=== PATIENT | male | born 1960 | race Hispanic/Latino ===

== ENCOUNTER 2016-09-02 20:50 | Observation (INO) | payer BC, OTHER ==
--- NOTE | 2016-09-02 21:20 | ED PDOC ---
Arrival/HPI - General Chief Complaint: Fever Time Seen by Provider: 09/02/16 21:08 Historian: Patient - History of Present Illness Narrative History of Present Illness (Text): 09/02/16 21:20 Ghulam Good is a 56 year old male, whose past medical history includes hypertension and enlarged prostate, who presents to the Emergency department complaining of fever since this morning. Patient reports associated chills, generalized malaise, and body aches since yesterday. Patient notes he recently underwent a prostate biopsy 1 week ago. Patient states he took 2 Aspirin at home. Patient also complaining of some occasional dysuria and abdominal discomfort. Patient denies any chest pain, shortness of breath, nausea, vomiting , diarrhea, back pain, neck pain, headache, dizziness, or any other complaints. Time/Duration: Other (yesterday) Symptom Onset: Gradual Symptom Course: Unchanged Activities at Onset: Rest, Light Context: Home Past Medical History - Provider Review Nursing Documentation Reviewed: Yes - Infectious Disease Hx of Infectious Diseases: None - Cardiac Hx Cardiac Disorders: Yes Hx Hypertension: Yes - Pulmonary Hx Respiratory Disorders: Yes Hx Bronchitis: Yes - Neurological Hx Neurological Disorder: No - HEENT Hx HEENT Disorder: Yes (WEARS RX GLASSES,TINNITUS) - Renal Hx Renal Disorder: No - Endocrine/Metabolic Hx Endocrine Disorders: Yes Other/Comment: prediabetic - Hematological/Oncological Hx Blood Disorders: No - Integumentary Hx Dermatological Disorder: No - Musculoskeletal/Rheumatological Hx Musculoskeletal Disorders: Yes (RIGHT HIATAL HERNIA SURGERY) Hx Falls: No - Gastrointestinal Hx Gastroesophageal Reflux: Yes - Genitourinary/Gynecological Hx Genitourinary Disorders: No - Psychiatric Hx Depression: No Hx Emotional Abuse: No Hx Physical Abuse: No Hx Substance Use: No - Surgical History Hx Hysterectomy: Yes Other/Comment: colonoscopy. Prostate biopsy - Anesthesia Hx Anesthesia: Yes Hx Anesthesia Reactions: No - Suicidal Assessment Feels Threatened In Home Enviroment: No Family/Social History - Physician Review Nursing Documentation Reviewed: Yes Family/Social History: Unknown Family HX Smoking Status: Never Smoked Hx Alcohol Use: No Hx Substance Use: No Allergies/Home Meds Allergies/Adverse Reactions: Allergies No Known Allergies Allergy (Verified 09/02/16 21:00) Home Medications: Home Meds Medication Instructions Recorded Confirmed Lisinopril [Lisinopril] 10 mg PO DAILY 06/09/13 09/02/16 Alprazolam [Xanax] 0.5 mg PO BID 09/02/16 09/02/16 clonazePAM [Klonopin] 0.5 mg PO BID 09/02/16 09/02/16 Review of Systems - Physician Review All systems were reviewed & negative as marked: Yes - Review of Systems Constitutional: Fevers, Other (+generalized malaise) Eyes: Normal ENT: Normal Respiratory: Normal. absent: SOB, Cough Cardiovascular: Normal. absent: Chest Pain Gastrointestinal: Abdominal Pain. absent: Diarrhea, Nausea, Vomiting Genitourinary Male: Dysuria Musculoskeletal: Myalgias (+body aches) Skin: Normal Neurological: Normal. absent: Headache, Dizziness Endocrine: Normal Hemo/Lymphatic: Normal Psychiatric: Normal Physical Exam Vital Signs Reviewed: Yes Vital Signs Temp Pulse Resp BP Pulse Ox 09/03/16 00:09 99.9 F H 100 H 18 121/73 95 09/02/16 22:49 99.9 F H 09/02/16 21:03 102.4 F H 120 H 19 135/79 96 Temperature: Febrile Blood Pressure: Normal Pulse: Regular Respiratory Rate: Normal Appearance: Positive for: Well-Appearing, Non-Toxic, Comfortable Pain Distress: None Mental Status: Positive for: Alert and Oriented X 3 - Systems Exam Head: Present: Atraumatic, Normocephalic Pupils: Present: PERRL Extroacular Muscles: Present: EOMI Conjunctiva: Present: Normal Mouth: Present: Moist Mucous Membranes Neck: Present: Normal Range of Motion Respiratory/Chest: Present: Clear to Auscultation, Good Air Exchange. No: Respiratory Distress, Accessory Muscle Use Cardiovascular: Present: Regular Rate and Rhythm, Normal S1, S2. No: Murmurs Abdomen: Present: Normal Bowel Sounds. No: Tenderness, Distention, Peritoneal Signs Back: Present: Normal Inspection Upper Extremity: Present: Normal Inspection. No: Cyanosis, Edema Lower Extremity: Present: Normal Inspection. No: Edema Neurological: Present: GCS=15, CN II-XII Intact, Speech Normal Skin: Present: Warm, Dry, Normal Color. No: Rashes Psychiatric: Present: Alert, Oriented x 3, Normal Insight, Normal Concentration Medical Decision Making ED Course and Treatment: 09/02/16 21:20 Impression: 56 year old male complaining of fever, chills, generalized malaise, and body aches. Differential Diagnosis include but are not limited to: SIRS vs. sepsis Plan: -- EKG -- CXR -- Labs, VBG, blood cultures -- Urinalysis, urine cultures -- Tylenol -- Reassess and disposition Progress Notes: 09/02/16 21:58 Reviewed radiology, Chest X-ray shows no active disease. 09/02/16 22:35 Reviewed EKG, sinus tachycardia at 103 bpm[address] Non-specific ST/T wave changes. 09/03/16 01:[address] Gurvinder Pepe, who is aware and agrees with plan. Accepts pt in to his service. Pt will go to [facility] observation for SIRS r/o sepsis. Requests Dr. Guevara on consult. Pt is no acute distress. Discussed results and plan with pt, who is aware and verbalizes understanding. - Lab Interpretations Lab Results: 09/02/16 21:20 09/02/16 21:20 Lab Results 09/03/16 01:02: pO2 155 H, VBG pH 7.40, VBG pCO2 38.0 L, VBG HCO3 23.5, VBG Total CO2 24.7, VBG O2 Sat (Calc) 99.3 H, VBG Base Excess -1.0 L, VBG Potassium 3.5 L, Sodium 135.0, Chloride 107.0, Glucose 111 H, Lactate 0.7, FiO2 21.0, Venous Blood Potassium 3.5 L 09/02/16 23:05: Urine Color Yellow, Urine Appearance Clear, Urine pH 6.0, Ur Specific [place] <= 1.005, Urine Protein Negative, Urine Glucose (UA) Negative, Urine Ketones Negative, Urine Blood Large H, Urine Nitrate Negative, Urine Bilirubin Negative, Urine Urobilinogen 0.2, Ur Leukocyte Esterase Negative, Urine RBC 15 - 20, Urine WBC 0 - 2, Ur Epithelial Cells 0 - 2 09/02/16 21:20: Sodium 137, Chloride 102, Potassium 4.0, Carbon Dioxide 25, Anion Gap 14, BUN 13, Creatinine 0.9, Est GFR ( Amer) > 60, Est GFR (Non- Af Amer) > 60, Random Glucose 138 H, Calcium 8.8, Phosphorus 2.2 L, Magnesium 1.6 L, Total Bilirubin 0.6, AST 32, ALT 44, Alkaline Phosphatase 61, Total Protein 7.5, Albumin 4.1, Globulin 3.4, Albumin/Globulin Ratio 1.2 09/02/16 21:20: pO2 40, VBG pH 7.37, VBG pCO2 47.0, VBG HCO3 27.2, VBG Total CO2 28.6 H, VBG O2 Sat (Calc) 77.8 H, VBG Base Excess 1.3, VBG Potassium 4.0, Sodium 137.0, Chloride 103.0, Glucose 145 H, Lactate 2.0, FiO2 21.0, Venous Blood Potassium 4.0 09/02/16 21:20: PT 11.3, INR 1.05, APTT 28.8 09/02/16 21:20: WBC 8.2, RBC 5.07, Hgb 16.6, Hct 46.1, MCV 90.9, MCH 32.7, MCHC 36.0, RDW 12.4, Plt Count 168, MPV 9.9, Gran % 82.5 H, Lymph % (Auto) 7.0 L, [place] % (Auto) 8.1 H, Eos % (Auto) 2.0, Baso % (Auto) 0.4, Gran # 6.73 H, Lymph # 0.6 L, [place] # 0.7 H, Eos # 0.2, Baso # 0.03 I have reviewed the lab results: Yes - RAD Interpretation Radiology Orders: 09/02/16 21:09 CHEST PORTABLE [RAD] Stat - EKG Interpretation Interpreted by ED Physician: Yes Type: 12 lead EKG - Medication Orders Current Medication Orders: Acetaminophen (Tylenol 325mg Tab) 650 mg PO Q4H PRN PRN Reason: Fever >100.5 F Stop: 09/03/16 12:00 Sodium Chloride (Sodium Chloride 0.9%) 1,000 mls @ 100 mls/hr IV .Q10H STA Stop: 09/03/16 11:36 Discontinued Medications Acetaminophen (Tylenol 325mg Tab) 975 mg PO ONCE PRN PRN Reason: Fever >100.4 F Last Admin: 09/02/16 21:49 Dose: 975 mg Re-Assess: NOE Pain/Vitals Document 09/02/16 22:49 GMD (Rec: 09/03/16 00:53 GMD [id number]) Vitals Temperature (97.6 F-99.6 F) 99.9 F Temperature Source Oral Acetaminophen (Tylenol 325mg Tab) Confirm Administered Dose 975 mg .ROUTE .STK- MED ONE Stop: 09/02/16 21:22 Last Admin: 09/02/16 21:50 Dose: Sodium Chloride (Sodium Chloride 0.9%) 1,000 mls @ 999 mls/hr IV .Q1H1M STA Stop: 09/02/16 22:57 Last Admin: 09/02/16 22:09 Dose: 999 mls/hr Ceftriaxone Sodium (Rocephin 1 Gram Ivpb) 1 gm in 100 mls @ 200 mls/hr IV ONCE STA PRN Reason: Protocol Stop: 09/03/16 01:18 Last Admin: 09/03/16 00:58 Dose: 200 mls/hr - Scribe Statement The provider has reviewed the documentation as recorded by the Leandroibcordell Ernst Provider Attestation: All medical record entries made by the Scribe were at my direction and personally dictated by me. I have reviewed the chart and agree that the record accurately reflects my personal performance of the history, physical exam, medical decision making, and the department course for this patient. I have also personally directed, reviewed, and agree with the discharge instructions and disposition. Disposition/Present on Arrival - Present on Arrival Any Indicators Present on Arrival: No History of DVT/PE: No History of Uncontrolled Diabetes: No Urinary Catheter: No History of Decub. Ulcer: No History Surgical Site Infection Following: None - Disposition Have Diagnosis and Disposition been Completed?: Yes Diagnosis: SIRS (systemic inflammatory response syndrome), Fever Disposition: HOSPITALIZED Disposition Time: 01:44 Patient Plan: Observation Condition: STABLE Referrals: Jerome Pepe MD [Primary Care Provider] - Follow up with primary
[2016-09-02 21:33] LABS: ADD MANUAL DIFF? NO
[2016-09-02 21:40] LABS: BASO # 0.03 K/mm3 (0.0-2.0); BASO % 0.4 % (0.0-3.0); EOS # 0.2 (0.0-0.7); GRAN # 6.73 (1.4-6.5); GRAN % 82.5 % (50.0-68.0); HEMATOCRIT 46.1 % (42.0-52.0); LYMPH # 0.6 (1.2-3.4); MEAN CELL VOLUME 90.9 fL (80.0-105.0); MEAN CORPUSCULAR HEMOGLOBIN 32.7 pg (25.0-35.0); MEAN PLATELET VOLUME 9.9 fl (7.0-11.0); MONO # 0.7 (0.1-0.6); MONO % 8.1 % (1.0-6.0); PLATELET COUNT 168 10^3/uL (120.0-450.0); RED CELL DISTRIBUTION WIDTH 12.4 % (11.5-14.5); WHITE BLOOD COUNT 8.2 10^3/ul (4.5-11.0)
[2016-09-02 21:47] LABS: VENOUS BLOOD GAS BASE EXCESS 1.3 mmol/L (0.0-2.0); VENOUS BLOOD PH 7.37 (7.32-7.43)
[2016-09-02 21:49] LABS: ALB/GLOB RATIO 1.2 (1.1-1.8); ALKALINE PHOSPHATASE 61 U/L (38-133); ALT/SGPT 44 U/L (7-56); AST/SGOT 32 U/L (15-59); BILIRUBIN,TOTAL 0.6 mg/dL (0.2-1.3); BLOOD UREA NITROGEN 13 mg/dL (7-21); CALCIUM 8.8 mg/dL (8.4-10.5); CARBON DIOXIDE 25 mmol/L (21-33); CHLORIDE 102 mmol/L (98-107); GFR AFRICAN-AMERICAN > 60; GLUCOSE,RANDOM 138 mg/dL (70-110); MAGNESIUM 1.6 mg/dL (1.7-2.2); PHOSPHOROUS 2.2 mg/dL (2.5-4.5); SODIUM 137 mmol/L (132-148); TOTAL PROTEIN 7.5 g/dL (5.8-8.3)
[2016-09-02] MEDS ORDERED: Sodium Chloride 0.9% 1,000 ML IV STA (21:57)
[2016-09-02 22:20] LABS: INR 1.05 (0.93-1.08); PARTIAL THROMBOPLASTIN TIME 28.8 Seconds (23.7-30.8)
[2016-09-02 23:38] LABS: URINE BILIRUBIN NEGATIVE (NEGATIVE); URINE BLOOD LARGE (NEGATIVE); URINE GLUCOSE (UA) NEGATIVE (NEGATIVE); URINE KETONE NEGATIVE (NEGATIVE); URINE LEUKOCYTE ESTERASE NEGATIVE Leu/uL (NEGATIVE); URINE PROTEIN NEGATIVE mg/dL (<30 mg/dL); URINE UROBILINOGEN 0.2 E.U./dL (<1 E.U./dL)
[2016-09-02 23:40] LABS: URINE APPEARANCE CLEAR (CLEAR); URINE COLOR YELLOW (YELLOW)
[2016-09-02 23:48] LABS: URINE EPITHELIAL CELLS 0 - 2 /hpf (0-5); URINE RBC 15 - 20 /hpf (0-2); URINE WBC 0 - 2 /hpf (0-6)
[2016-09-03] MEDS ORDERED: cefTRIAXone 1 gm 1 GM/100 ML BAG IV STA (00:49)
[2016-09-03] MEDS ORDERED: Sodium Chloride 0.9% 1,000 ML IV STA (01:37)
[2016-09-03 04:10] VITALS: BMI 32.3
[2016-09-03] MEDS ORDERED: Vancomycin 1gm in NS 250ml 1 GM/250 ML BAG IVPB STA (07:29)
--- NOTE | 2016-09-03 09:33 | RAD ---
HISTORY: Sepsis Patient COMPARISON: Chest x-ray performed 06/09/13 TECHNIQUE: Chest, one view. FINDINGS: LUNGS: No focal consolidation. Please note that chest x-ray has limited sensitivity for the detection of pulmonary masses. PLEURA: No significant pleural effusion identified. No definite pneumothorax . CARDIOVASCULAR: Heart size appears within normal limits. OSSEOUS STRUCTURES: Degenerative changes of the spine. VISUALIZED UPPER ABDOMEN: Unremarkable. OTHER FINDINGS: None. IMPRESSION: No focal consolidation, significant pleural effusion, or definite pneumothorax identified.
[2016-09-03] MEDS ORDERED: cefTRIAXone 1 gm 1 GM/100 ML BAG IVPB SCH (10:00)
[2016-09-03] MEDS: Meropenem 1g/NS 100mL IVPB 1 GM/100 ML PIGGYBACK IVPB SCH ×2 (11:29→21:43)
--- NOTE | 2016-09-03 13:45 | CP.PCM.CON ---
History of Present Illness - History of Present Illness History of Present Illness: 56 year old mael with PMH of HTN, enlarged prostate, right hiatal hernia surgery came in to [facility] complaining of fever, chills, body aches and generalized weakness for the past 2 days. Last week the patient had a prostate biopsy done. He was given prophylactic antibiotics at the time of procedure and was given some to take home for 3 days. He was doing relatively well but notes initially blood in the urine, then became brownish, with some urinary frequency but no dysuria per se. He denies nausea or vomiting, no headache or dizziness, no chest pain, no SOB, no abdominal pain, no flank pain. Infectious diseases consult is requested to further evaluate and manage. Review of Systems - Review of Systems All systems: reviewed and no additional remarkable complaints except (as per HPI ) Past Patient History - Infectious Disease Hx of Infectious Diseases: None - Past Social History Smoking Status: Never Smoked - CARDIAC Hx Cardiac Disorders: Yes Hx Hypertension: Yes - PULMONARY Hx Respiratory Disorders: Yes Hx Bronchitis: Yes - NEUROLOGICAL Hx Neurological Disorder: No - HEENT Hx HEENT Problems: Yes (WEARS RX GLASSES,TINNITUS) - RENAL Hx Chronic Kidney Disease: No - ENDOCRINE/METABOLIC Hx Endocrine Disorders: Yes Other/Comment: prediabetic - HEMATOLOGICAL/ONCOLOGICAL Hx Blood Disorders: No - INTEGUMENTARY Hx Dermatological Problems: No - MUSCULOSKELETAL/RHEUMATOLOGICAL Hx Musculoskeletal Disorders: No Hx Falls: No - GASTROINTESTINAL Hx Gastrointestinal Disorders: Yes Hx Gastroesophageal Reflux: Yes - GENITOURINARY/GYNECOLOGICAL Hx Genitourinary Disorders: Yes Hx Prostate Problems: Yes (09/02 BIOPSY OF PROSTATE, ENLARGED PROSTATE) - PSYCHIATRIC Hx Psychophysiologic Disorder: No Hx Depression: No Hx Emotional Abuse: No Hx Physical Abuse: No - SURGICAL HISTORY Hx Surgeries: Yes Hx Hysterectomy: No Other/Comment: colonoscopy. Prostate biopsy - ANESTHESIA Hx Anesthesia: Yes Hx Anesthesia Reactions: No Meds Allergies/Adverse Reactions: Allergies Allergy/AdvReac Type Severity Reaction Status Date / Time No Known Allergies Allergy Verified 09/02/16 21:00 - Medications Medications: Current Medications Acetaminophen (Tylenol 325mg Tab) 650 mg PO Q4H PRN PRN Reason: Fever >100.5 F Stop: 09/03/16 12:00 Last Admin: 09/03/16 03:18 Dose: 650 mg Sodium Chloride (Sodium Chloride 0.9%) 1,000 mls @ 100 mls/hr IV .Q10H STA Stop: 09/03/16 11:36 Last Admin: 09/03/16 01:55 Dose: 100 mls/hr Physical Exam - Constitutional Appears: Non-toxic, No Acute Distress - Head Exam Head Exam: NORMAL INSPECTION - ENT Exam ENT Exam: Mucous Membranes Moist - Neck Exam Neck exam: Negative for: Lymphadenopathy, Meningismus - Respiratory Exam Respiratory Exam: Decreased Breath Sounds - Cardiovascular Exam Cardiovascular Exam: +S1, +S2 - GI/Abdominal Exam GI & Abdominal Exam: Soft. absent: Tenderness Results - Vital Signs Recent Vital Signs: Last Vital Signs Temp 101.2 F H 09/03/16 03:58 Pulse 96 H 09/03/16 03:58 Resp 20 09/03/16 03:58 BP 123/86 09/03/16 03:58 Pulse Ox 96 09/03/16 03:06 - Labs Result Diagrams: 09/02/16 21:20 09/02/16 21:20 Assessment & Plan - Assessment and Plan (Free Text) Plan: Assessment Systemic Inflammatory Response Syndrome, R/O sepsis from urinary tract infection in a patient who just underwent prostate biopsy HTN enlarged prostate right hiatal hernia surgery Plan Gave a dose of IV Vanco and started Merrem pending blood, urine cx; will monitor clinically and trend fever curve
--- NOTE | 2016-09-03 22:00 | HP ---
HISTORY OF PRESENT ILLNESS: The patient is a 56-year-old man with past medical history of hypertensi on and elevated PSA, who presented to [facility] with a 3-4 day history of fevers, chills , rigors and malaise after undergoing a prostate biopsy. The patient states that he was in his usual state of health until approximately 1 week ago when he underwent a prostate biopsy for evaluation of a progressively rising PSA. The patient was given prophylactic antibiotics periprocedure (he cannot recall the name of these antibiotics, however), and states that his immediate postprocedure course w as relatively uncomplicated with the exception of mild hematuria. Several days later, however, he de veloped fevers, chills and rigors associated with malaise which [facility] Upon arrival to the ED, he was noted to be febrile with a temperature of 102.4 and tachyc ardic with a pulse of 120. He was started on cefepime and vancomycin, as well as IV fluid hydration consisting of isotonic saline before being admitted to the [facility] for continued managem ent of SIRS syndrome presumed secondary to genitourinary source. PAST MEDICAL HISTORY: As per HPI. PAST SURGICAL HISTORY: As per HPI, also right hiatal hernia repair. ALLERGIES: No known drug allergies. MEDICATIONS: Klonopin 0.5 mg p.o. b.i.d., lisinopril 10 mg p.o. daily. FAMILY HISTORY: Noncontributory. SOCIAL HISTORY: The patient reports social alcohol use, but denies illicit drug abuse. The patient also denies any history of tobacco use. REVIEW OF SYSTEMS: A 14 point review of systems is negative except as per HPI. PHYSICAL EXAMINATION: VITAL SIGNS: Temperature 98.5, pulse 82, blood pressure 120/84, respiratory rate 20, oxygen saturati on 97% on room air. GENERAL: No apparent distress. HEENT: PERRL. EOMI. No scleral icterus, no conjunctival pallor. NECK: No JVD, no bruits. LUNGS: Clear to auscultation. CARDIOVASCULAR: Regular rate and rhythm. Normal S1 and S2. ABDOMEN: Normoactive bowel sounds, soft, nontender, nondistended. EXTREMITIES: No edema. NEUROLOGIC: Awake, alert and oriented x 3. No focal motor deficits. LABORATORY DATA: WBC 8.2 with 83% neutrophils, hemoglobin 16, hematocrit 46, platelets 168. Army Manager ry reviewed and unremarkable. Procalcitonin level 0.19. Urinalysis demonstrates large blood, but ne gative nitrites and negative leukocyte esterase. Urine cultures are pending. Blood cultures are pen ding. IMAGING STUDIES: Chest x-ray demonstrates no acute pathology. ASSESSMENT: The patient is a 56-year-old man with past medical history of hypertension and elevated PSA who presents to [facility] with a several day history of fevers, chills, rigors and m alaise, status post prostate biopsy. PLAN: 1. SIRS syndrome. Consider etiology secondary to genitourinary source. Blood and urine cultures ar e ordered and pending. Procalcitonin level is unremarkable. Input from Dr. Tomeka carey and robert conti, and the patient has been started on meropenem 1 gram IV q. 8 hours. Will continue to monitor fo r fever and leukocytosis. Continue with Tylenol 650 mg p.o. q. 6 hours p.r.n. fever. 2. Hypertension. Blood pressure controlled. Continue with lisinopril 10 mg p.o. daily. 3. Anxiety disorder. Continue with Klonopin 0.5 mg p.o. b.i.d. 4. Prophylaxis. GI prophylaxis not indicated as patient is eating. DVT prophylaxis not indicated a s patient is ambulatory. CODE STATUS: Full code. Washington Pepe MD cc: [id number] TT: 09/03/2016 22:00:19 az
--- NOTE | 2016-09-03 22:03 | CARD ---
APPROVED REPORT EKG Measurement Heart [id number] CT 124P49 [id number] <Conclusion> Sinus tachycardia Possible Left atrial enlargement Borderline ECG
[2016-09-04] MEDS: Meropenem 1g/NS 100mL IVPB 1 GM/100 ML PIGGYBACK IVPB SCH ×3 (06:09→21:43)
[2016-09-04 07:08] LABS: ADD MANUAL DIFF? NO
[2016-09-04 07:24] LABS: ALB/GLOB RATIO 1.2 (1.1-1.8); ALKALINE PHOSPHATASE 51 U/L (38-133); ALT/SGPT 44 U/L (7-56); AST/SGOT 33 U/L (15-59); BILIRUBIN,TOTAL 0.5 mg/dL (0.2-1.3); BLOOD UREA NITROGEN 11 mg/dL (7-21); CALCIUM 8.9 mg/dL (8.4-10.5); CARBON DIOXIDE 27 mmol/L (21-33); CHLORIDE 105 mmol/L (98-107); GFR AFRICAN-AMERICAN > 60; GLUCOSE,RANDOM 101 mg/dL (70-110); POTASSIUM 4.4 mmol/L (3.6-5.0); SODIUM 141 mmol/L (132-148); TOTAL PROTEIN 7.1 g/dL (5.8-8.3)
[2016-09-04 07:27] LABS: BASO # 0.03 K/mm3 (0.0-2.0); BASO % 0.5 % (0.0-3.0); EOS # 0.4 (0.0-0.7); EOS % 6.7 % (1.5-5.0); GRAN # 2.86 (1.4-6.5); GRAN % 49.2 % (50.0-68.0); HEMATOCRIT 43.5 % (42.0-52.0); LYMPH # 1.8 (1.2-3.4); LYMPH % 31.7 % (22.0-35.0); MEAN CELL VOLUME 91.6 fL (80.0-105.0); MEAN CORPUSCULAR HEMOGLOBIN 33.5 pg (25.0-35.0); MEAN CORPUSCULAR HGB CONC 36.6 g/dl (31.0-37.0); MEAN PLATELET VOLUME 10.1 fl (7.0-11.0); MONO # 0.7 (0.1-0.6); MONO % 11.9 % (1.0-6.0); PLATELET COUNT 161 10^3/uL (120.0-450.0); RED CELL DISTRIBUTION WIDTH 12.5 % (11.5-14.5); WHITE BLOOD COUNT 5.8 10^3/ul (4.5-11.0)
--- NOTE | 2016-09-04 08:51 | PN ---
DATE: 09/04/2016 SUBJECTIVE: The patient is seen and examined at bedside in the [facility]. No acute event s overnight. He remains afebrile and hemodynamically stable. This morning, the patient states he fe els well and offers no complaints. OBJECTIVE: VITAL SIGNS: Temperature 99.2, pulse 80, blood pressure 120/86, respiratory rate 18, oxygen saturati on 97% on room air. GENERAL: No apparent distress. HEENT: PERRL. EOMI. No scleral icterus. No conjunctival pallor. NECK: No JVD, no bruits. LUNGS: Clear to auscultation. CARDIOVASCULAR: Regular rate and rhythm. Normal S1 and S2. ABDOMEN: Normoactive bowel sounds, soft, nontender, nondistended. EXTREMITIES: No edema. NEUROLOGIC: Awake, alert, and oriented x 3. No focal motor deficits. LABORATORY DATA: CBC reviewed and unremarkable. CMP reviewed and unremarkable. Blood cultures with no growth to date. ASSESSMENT: The patient is a 56-year-old man with past medical history of hypertension and elevated prostate-specific antigen, who presented to [facility] with a several-day history of feve rs, chills, rigors, and malaise, status post prostate biopsy. PLAN: 1. Systemic inflammatory response syndrome with etiology likely secondary to a genitourinary source. Input from Dr. Eckert noted and appreciated. The patient remains on meropenem 1 gram IV q. 8 hours. Blood cultures are negative to date. Urine culture is pending. Continue to monitor for fever and leukocytosis. Continue with Tylenol p.r.n. fever. 2. Hypertension. Blood pressure controlled. Continue with lisinopril 10 mg p.o. daily. 3. Anxiety disorder. Continue with Klonopin 0.5 mg p.o. b.i.d. 4. Prophylaxis. GI prophylaxis is not indicated, as the patient is eating. DVT prophylaxis is not indicated, as the patient is ambulatory. CODE STATUS: Full code. Washington Pepe MD cc: [id number] TT: 09/04/2016 08:50:36 Confirmation # [id number] Dictation # [id number]
--- NOTE | 2016-09-04 11:48 | CP.PCM.PN ---
Subjective - Date & Time of Evaluation Date of Evaluation: 09/04/16 Time of Evaluation: 10:30 - Subjective Subjective: Feeling much better, no fevers overnight, no more body aches, no muscle aches. Objective - Vital Signs/Intake and Output Vital Signs (last 24 hours): Temp Pulse Resp BP Pulse Ox 98.3 F 86 20 124/87 98 09/04/16 07:30 09/04/16 09:16 09/04/16 07:30 09/04/16 09:16 09/04/16 07:30 Intake and Output: 09/04/16 09/04/16 06:59 18:59 Intake Total 960 Balance 960 - Medications Medications: Current Medications Acetaminophen (Tylenol 325mg Tab) 650 mg PO Q6H PRN PRN Reason: Pain, moderate (4-7) Last Admin: 09/03/16 23:07 Dose: 650 mg Clonazepam (Klonopin) 0.5 mg PO BID YAIR PRN Reason: Protocol Last Admin: 09/04/16 09:17 Dose: 0.5 mg Meropenem 1g/NS 100mL IVPB (Meropenem 1g/Ns 100ml Ivpb) 1 gm in 100 mls @ 100 mls/hr IVPB Q8 YAIR PRN Reason: Protocol Stop: 09/10/16 10:07 Last Admin: 09/04/16 06:09 Dose: 100 mls/hr Lisinopril (Zestril) 10 mg PO DAILY [facility] Last Admin: 09/04/16 09:16 Dose: 10 mg - Labs Labs: 09/04/16 06:30 09/04/16 06:30 PT 11.3 Seconds (9.9-11.8) 09/02/16 21:20 INR 1.05 (0.93-1.08) 09/02/16 21:20 APTT 28.8 Seconds (23.7-30.8) 09/02/16 21:20 - Constitutional Appears: Non-toxic, No Acute Distress - Head Exam Head Exam: NORMAL INSPECTION - ENT Exam ENT Exam: Mucous Membranes Moist - Neck Exam Neck Exam: absent: Lymphadenopathy, Meningismus - Respiratory Exam Respiratory Exam: Decreased Breath Sounds - Cardiovascular Exam Cardiovascular Exam: +S1, +S2 - GI/Abdominal Exam GI & Abdominal Exam: Soft. absent: Tenderness Assessment and Plan - Assessment and Plan (Free Text) Plan: Assessment Systemic Inflammatory Response Syndrome, R/O sepsis from urinary tract infection in a patient who just underwent prostate biopsy HTN enlarged prostate right hiatal hernia surgery Plan Gave a dose of IV Vanco and on Merrem (day 2); blood, urine cx are negative; when ready for discharge, would recommend PO Vantin 200 mg BID for another 7-10 days with outpatient follow up with PMD and Urologist
[2016-09-04 17:49] VITALS: O2SAT 97
[2016-09-05] MEDS: Meropenem 1g/NS 100mL IVPB 1 GM/100 ML PIGGYBACK IVPB SCH (05:04)
[2016-09-05 06:51] LABS: ADD MANUAL DIFF? NO
[2016-09-05 07:02] LABS: BASO # 0.04 K/mm3 (0.0-2.0); BASO % 0.6 % (0.0-3.0); EOS # 0.4 (0.0-0.7); EOS % 6.1 % (1.5-5.0); GRAN # 3.44 (1.4-6.5); GRAN % 52.8 % (50.0-68.0); HEMATOCRIT 43.1 % (42.0-52.0); LYMPH % 30.2 % (22.0-35.0); MEAN CELL VOLUME 90.9 fL (80.0-105.0); MEAN CORPUSCULAR HEMOGLOBIN 32.7 pg (25.0-35.0); MEAN PLATELET VOLUME 9.8 fl (7.0-11.0); MONO # 0.7 (0.1-0.6); MONO % 10.3 % (1.0-6.0); PLATELET COUNT 177 10^3/uL (120.0-450.0); RED CELL DISTRIBUTION WIDTH 12.4 % (11.5-14.5); WHITE BLOOD COUNT 6.5 10^3/ul (4.5-11.0)
[2016-09-05 07:16] LABS: ALB/GLOB RATIO 1.2 (1.1-1.8); ALKALINE PHOSPHATASE 50 U/L (38-133); ALT/SGPT 51 U/L (7-56); AST/SGOT 35 U/L (15-59); BILIRUBIN,TOTAL 0.5 mg/dL (0.2-1.3); BLOOD UREA NITROGEN 13 mg/dL (7-21); CALCIUM 9.2 mg/dL (8.4-10.5); CARBON DIOXIDE 29 mmol/L (21-33); CHLORIDE 102 mmol/L (95-110); GFR AFRICAN-AMERICAN > 60; GLUCOSE,RANDOM 103 mg/dL (70-110); POTASSIUM 4.5 mmol/L (3.6-5.0); SODIUM 140 mmol/L (132-148); TOTAL PROTEIN 7.2 g/dL (5.8-8.3)
[2016-09-05 07:42] VITALS: BP 120/85; PULSE 82; RESP 16; TEMP 98.2
--- NOTE | 2016-09-05 10:02 | PN ---
DATE: 09/05/2016 SUBJECTIVE: The patient seen and examined at bedside on the [facility]. No acute events o vernight. He remains afebrile and hemodynamically stable. This morning, he reports significant impr ovement in his symptoms and denies any further fevers, chills, rigors, or malaise. OBJECTIVE: VITAL SIGNS: Temperature 98.2, pulse 82, blood pressure 120/85, respiratory rate 16. Oxygen saturat ion 97% on room air. GENERAL: No apparent distress. HEENT: PERRL. EOMI. No scleral icterus. No conjunctival pallor. NECK: No JVD, no bruits. LUNGS: Clear to auscultation. CARDIOVASCULAR: Regular rate and rhythm. Normal S1 and S2. ABDOMEN: Normoactive bowel sounds, soft, nontender, nondistended. EXTREMITIES: No edema. NEUROLOGIC: Awake, alert and oriented x 3. No focal motor deficits. LABORATORY DATA: CBC reviewed and unremarkable. CMP reviewed and unremarkable. Blood cultures with no growth to date. Urine culture with no growth to date. ASSESSMENT: The patient is a 56-year-old male with past medical history of hypertension and elevated PSA who presents to [facility] with a several day history of fevers, chills, rigors and malaise, status post prostate biopsy, who has clinically improved. PLAN: 1. SIRS with etiology likely secondary to genitourinary source. Input from Dr. Eckert noted and appr eciated. The patient has been afebrile for the past 48 hours and with negative blood and urine cultu res. Dr. Eckert's note appreciated and recommendations have been made for Vantin 200 mg p.o. b.i.d. t o complete a 7-10 day course. 2. Hypertension. Blood pressure controlled. Continue with lisinopril 10 mg p.o. daily. 3. Anxiety disorder. Continue with Klonopin 0.5 mg p.o. b.i.d. and Xanax 0.5 mg p.o. b.i.d. 4. Prophylaxis. GI prophylaxis not indicated as the patient is eating. DVT prophylaxis not indicat ed as the patient is ambulatory. 5. Disposition. The patient will be discharged home today. CODE STATUS: Full code. Washington Pepe MD cc: [id number] TT: 09/05/2016 10:01:45 Confirmation # [id number] Dictation # [id number]
--- NOTE | 2016-09-06 02:20 | DS ---
DATE OF ADMISSION: 09/03/2016. DATE OF DISCHARGE: 09/05/2016. ADMITTING DIAGNOSIS: Systemic inflammatory response syndrome. DISCHARGE DIAGNOIS: Systemic inflammatory response syndrome secondary to genitourinary source. SECONDARY DIAGNOSES: Hypertension, anxiety disorder, elevated PSA. CONSULTATIONS: Dr. Eckert (infectious disease). IMAGING STUDIES: None. PROCEDURES: None. HISTORY OF PRESENT ILLNESS: The patient is a 56-year-old male with past medical history of hypertension, anxiety disorder and elevated PSA, who presented to [facility] with a 3-4 day history of fevers, chills, rigors and malaise after undergoing a prostate biopsy. The patient states that he was in his usual state of health until approximately 1 week ago when he underwent a prostate biopsy for evaluation of a progressively rising PSA. The patient was given prophylactic antibiotics eugene-procedure (he cannot recall the name of these antibiotics) and states that his immediate post-procedure course was relatively uncomplicated with the exception of mild hematuria. Several days later; however, he developed fevers, chills and rigors associated with malaise, which prompted his visit to the Emergency Department. Upon arrival to the ED, he was febrile with temperature of 102.4 and tachycardic with a pulse of 120. He was started on cefepime and vancomycin intravenously, as well as IV fluid hydration with isotonic saline before being admitted to the [facility] for continued management of SIRS syndrome, presumed secondary to genitourinary source. HOSPITAL COURSE: Upon admission to the [facility], the patient was evaluated by Dr. Eckert of infectious disease and was placed on meropenem 1 gram IV q. 8 hours. Blood and urine cultures were obtained in the Emergency Department and the results were still pending. Over the following 24 hours, the patient was noted to defervesce nicely and reported resolution of his fevers , chills and rigors. The following day, the patient's blood and urine cultures have resulted as negative. The patient reported resolution of his symptoms. At this point in time, he was deemed stable for discharge to home. CONDITION: Good, improved. DISPOSITION: To home. DISCHARGE MEDICATIONS: Lisinopril 10 mg p.o. daily, Klonopin 0.5 mg p.o. b.i.d. , alprazolam 0.5 mg p.o. b.i.d. and Vantin 200 mg p.o. b.i.d. to complete a 10- day course. DISCHARGE INSTRUCTIONS: The patient was advised that if he has any recurrence of his symptoms to present to his PMD or to the nearest Emergency Department immediately. FOLLOWUP: The patient to follow up with his PMD within 1 week of discharge. The patient to follow up with his urologist as scheduled. Washington Pepe MD cc: [id number] TT: 09/06/2016 02:19:34 marian SILVESTRE
== END 2016-09-05 11:04 | disposition home or self-care (01) ==
LOC: ED 20:50 → ERH 09-03 01:36 → 5RNO 09-03 03:12
PROVIDERS: ADMIT Student in an Organized Health Care Education/Training Program; ATTEND Student in an Organized Health Care Education/Training Program
DX: N39.0 Urinary tract infection, site not specified (principal); N40.0 Benign prostatic hyperplasia without lower urinary tract symptoms; I10 Essential (primary) hypertension; R31.9 Hematuria, unspecified; F41.9 Anxiety disorder, unspecified
CPT/HCPCS: 36415; 71010; 80053; 81001; 82803; 83735; 84100; 84145; 85025; 85610; 85730; 87040; 87086; 87804; 93005; 96360; 99285; G0378; J0696; J7040